=== PATIENT | male | born 1980 | race Caucasian/White ===

== ENCOUNTER 2020-12-21 21:11 | Emergency (ER) | payer OTHER ==
[~2020-12-21] VITALS: Ht 172.7 cm; Wt 87.1 kg
[2020-12-21] MEDS ORDERED: CYCLOBENZAPRINE5 MG PO (22:32)
[2020-12-21 22:43] VITALS: BP 134/91
== END 2020-12-21 22:49 | disposition home or self-care (01) ==
LOC: ER 21:11
DX: S13.4XXA Sprain of ligaments of cervical spine, initial encounter (principal); G95.19 Other vascular myelopathies; M48.02 Spinal stenosis, cervical region; V43.52XA Car driver injured in collision with other type car in traffic accident, initial encounter; Y93.I9 Activity, other involving external motion; Y92.89 Other specified places as the place of occurrence of the external cause; Y99.8 Other external cause status